=== PATIENT | female | born 1970 | race Caucasian/White ===

== ENCOUNTER → 2022-08-22 14:54 | Outpatient (BNVA) | payer OTHER, SELFPAY | PROVIDERS: Visit Provider Internal Medicine | DX: S80.02XA Contusion of left knee, initial encounter (principal); S83.422A Sprain of lateral collateral ligament of left knee, initial encounter; Y04.2XXA Assault by strike against or bumped into by another person, initial encounter | CPT/HCPCS: 99203 ==

== ENCOUNTER → 2022-08-24 10:58 | Outpatient (BNVA) | payer OTHER, SELFPAY | PROVIDERS: Visit Provider Internal Medicine | DX: S80.02XA Contusion of left knee, initial encounter (principal); S83.422A Sprain of lateral collateral ligament of left knee, initial encounter; Y04.2XXA Assault by strike against or bumped into by another person, initial encounter | CPT/HCPCS: 99213 ==

== ENCOUNTER 2023-10-11 08:00 | Outpatient (REF) | payer OTHER, SELFPAY ==
--- NOTE | 2023-10-11 08:11 | EMG_ITS ---
Right median and ulnar motor and sensory studies were performed. Right radial sensory and median and lateral antecubital sensory studies were performed and paraspinal muscles were tested with a needle. IMPRESSION: Mild right median neuropathy across carpal tunnel. MD AISSATOU Snyder/MACARIO / [id number]
== END 2023-10-11 08:01 | disposition home or self-care (01) ==
LOC: HO.NEURO 08:00
PROVIDERS: PCP Nurse Practitioner Family; Visit Provider Nurse Practitioner
DX: M79.601 Pain in right arm (principal)
CPT/HCPCS: 95886; 95910